=== PATIENT | female | born 1980 | race Caucasian/White ===

== ENCOUNTER 2023-10-06 04:57 | Day surgery (SDC) | payer BC ==
[2023-10-01 09:53] VITALS: BMI 34.2
[2023-10-06 07:58] VITALS: RESP 18
[2023-10-06] MEDS ORDERED: ALBUTEROL SO4 HFA INHALER IH ONE (09:44)
[2023-10-06 10:27] VITALS: TEMP 98.4
[2023-10-06 11:15] VITALS: BP 118/73; PULSE 90
== END 2023-10-06 11:15 | disposition home or self-care (01) ==
LOC: JASU-ENDO 04:57
PROVIDERS: ATTEND Internal Medicine Gastroenterology
PROC: 0DJD8ZZ Inspection of Lower Intestinal Tract, Via Natural or Artificial Opening Endoscopic (ICD-10-PCS; principal; 2023-10-06 10:00)
DX: Z12.11 Encounter for screening for malignant neoplasm of colon (principal); K64.8 Other hemorrhoids
CPT/HCPCS: 81025; 88305-TC